=== PATIENT | male | born 1995 | race Caucasian/White ===

== ENCOUNTER 2020-09-27 20:09 | Emergency (ER) | payer OTHER, SELFPAY ==
[2020-09-27 20:10] VITALS: BP 116/83; PULSE 112; RESP 16; TEMP 37.3; O2SAT 98; BMI 34.5
--- NOTE | 2020-09-27 21:34 | EX.ED.DYSGE1 ---
HPI History of Present Illness Chief Complaint: Ear Problem Informant: patient Narrative Narrative: 24-year-old male presenting with left ear pain. He states he started having an earache in his left ear today. He denies fever. He states he had nausea earlier today. He denies vomiting or diarrhea. Denies abdominal pain. He states he had loss of appetite earlier today. He has history of Covid and has since recovered. Denies other complaints. PFSH PFSH Home Medications amoxicillin 500 mg PO TID #21 tab 09/27/20 [Rx Last Taken Unknown] ondansetron 4 mg PO Q8H PRN PRN #10 tab 09/27/20 [Rx Last Taken Unknown] Allergy/AdvReac Type Severity Reaction Status Date / Time No Known Allergies Allergy Verified 07/07/16 06:35 Social History Smoking Status: Current every day smoker ROS ROS ED Constitutional Constitutional ED: Denies fever(s) Eyes Eyes: Denies change in vision ENT ENT ED: Reports ear pain left; Denies rhinorrhea or sore throat Cardiovascular Cardiovascular: Denies chest pain or palpitations Respiratory/Chest Respiratory/Chest: Denies cough or dyspnea Gastrointestinal Gastrointestinal: Reports nausea; Denies abdominal pain, diarrhea or vomiting Genitourinary Genitourinary ED: Denies dysuria Musculoskeletal Musculoskeletal: Denies myalgias Integumentary Denies rash Neurologic Neurologic: Denies headache(s) Psychiatric Psychiatric: Denies suicidal thoughts EXAM Physical Exam Const Vital Signs: 09/27/20 20:10 09/27/20 21:40 Temperature 99.2 F H 98.0 F Temperature Source Oral Pulse Rate 112 H 88 Respiratory Rate 16 16 Blood Pressure 116/83 H 141/90 H Blood Pressure Mean 94 Pulse Ox 98 98 Oxygen Delivery Method Room Air Positive well nourished and well developed General Appearance ED: well developed HEENT Reports normocephalic and head/scalp atraumatic HEENT Narrative: left TM erythema and bulging Eyes PERRL and EOMs intact bilaterally Neck supple General: Negative for tenderness Chest Wall inspection of chest normal Resp normal respiratory effort and clear to auscultation bilaterally Cardio regular rate and regular rhythm GI non-tender and non-distended Palpation: soft; Negative for guarding or rebound tenderness present no CVA tenderness Extremity normal to inspection Neuro oriented x3 Sensorium / Orientation: alert Psych mental status grossly normal Skin no rashes or lesions noted MDM MDM MDM Narrative Medical decision making narrative: Patient declined nausea medication. He was given Amoxicillin. Advised to follow-up with Dr. Yanes mobile web application developer for no doctor. Advised return to the ED for worsening complaints. Discharge Plan Triage Chief Complaint: Ear Problem ED Provider: Judy South Dx/Rx/DC Orders Clinical Impression: Acute left otitis media Instructions: ED Otitis Media Antibiotic ... Prescriptions: New amoxicillin 500 MG tablet 500 mg PO TID Qty: 21 RF: 0 ondansetron [ondansetron] 4 MG tablet 4 mg PO Q8H PRN PRN (Reason: Nausea) Qty: 10 RF: 0 Primary Care Provider: Care Physician,No Primary Referrals: Kaiden Yanes MD [STAFF PHYSICIAN] - Care Physician,No Primary [Primary Care Provider] - Disposition Disposition: Home, self care
[2020-09-27] MEDS: AMOXICILLIN 500 MG CAPSULE PO (21:39)
[2020-09-27 21:40] VITALS: BP 141/90; PULSE 88; RESP 16; TEMP 36.7; O2SAT 98
== END 2020-09-27 21:57 | disposition home or self-care (01) ==
PROVIDERS: Emergency Provider Emergency Medicine
DX: H66.92 Otitis media, unspecified, left ear (principal); F17.200 Nicotine dependence, unspecified, uncomplicated; Z86.16 Personal history of COVID-19
CPT/HCPCS: 90471; 99284

== ENCOUNTER 2021-05-07 19:26 | Emergency (ER) | payer OTHER, SELFPAY ==
[2021-05-07 19:27] VITALS: BP 146/91; PULSE 115; RESP 16; TEMP 36.8; O2SAT 98; BMI 34.2
--- NOTE | 2021-05-07 19:50 | ED.VIS.DENTA ---
HPI History of Present Illness Chief Complaint: Dental Informant: patient Onset/Context/Timing Onset: Yesterday Context: Gradual Onset Timing: Continuous Quality: Aching throbbing Location: Right mandibular bicuspid Current Severity: Moderate Maximum Severity: Severe Worsened by: Eating, palpation Relieved by: NSAIDs (And Vicodin) Narrative Narrative: Dental pain in a tooth that has bothered him in the past, he states his dentist wants to pull it, he was apprehensive in the past. It is the weekend, it started really bothering him and he is concerned that he needs an antibiotic, I tried to call his dentist but they are not in and he plans on following up with them. He denies any systemic symptoms. He denies any focal swelling anywhere. PFSH PFSH Medical History no medical history no medical history Home Medications amoxicillin 500 mg PO TID #21 tab 09/27/20 [Rx Last Taken Unknown] ondansetron 4 mg PO Q8H PRN PRN #10 tab 09/27/20 [Rx Last Taken Unknown] amoxicillin 500 mg PO TID #30 tab 05/07/21 [Rx Last Taken Unknown] Allergy/AdvReac Type Severity Reaction Status Date / Time No Known Allergies Allergy Verified 05/07/21 19:26 Social History Smoking Status: Current every day smoker tobacco type: cigarettes ROS ROS ED Constitutional Constitutional ED: Denies chills or fever(s) Eyes Eyes: Denies change in vision or double vision ENT ENT ED: Reports dental pain; Denies sinus pain or throat swelling Cardiovascular Cardiovascular: Denies chest pain or palpitations Respiratory/Chest Respiratory/Chest: Denies cough or dyspnea Integumentary Denies abscess or rash Neurologic Neurologic: Denies headache(s), paresthesias or weakness EXAM Physical Exam Const Vital Signs: 05/07/21 19:27 Temperature 98.2 F Temperature Source Temporal Pulse Rate 115 H Respiratory Rate 16 Blood Pressure 146/91 H Blood Pressure Mean 109 Pulse Ox 98 Oxygen Delivery Method Room Air Positive well nourished and well developed General Appearance ED: well developed and NAD HEENT HEENT Narrative: Tooth #29 is partially decayed down to the gumline, associated with gingival hyperemia without bleeding. It is tender. No other tender dentition. No dental abscess. No trismus. Face and Sinus: sinuses nontender Throat: posterior oropharynx normal Eyes PERRL and EOMs intact bilaterally Neck no lymphadenopathy and supple Resp normal respiratory effort Neuro oriented x3 and CN's II-XII intact bilaterally Sensorium / Orientation: alert Gait (Neuro): normal gait Psych mental status grossly normal and thought process normal Skin no rashes or lesions noted and no wounds MDM MDM MDM Narrative Medical decision making narrative: Patient not requiring analgesics he states he feels better now after taking someone else's Vicodin at home. He was started on amoxicillin here, given a prescription and advised to follow-up with his dentist he is comfortable with that plan we discussed reasons to return. Discharge Plan Triage Chief Complaint: Dental ED Provider: Logan Liriano Dx/Rx/DC Orders Clinical Impression: Dental decay, Dental infection Instructions: Understanding Tooth Decay Prescriptions: New amoxicillin 500 MG tablet 500 mg PO TID Qty: 30 RF: 0 No Action amoxicillin 500 MG tablet 500 mg PO TID Qty: 21 RF: 0 ondansetron [ondansetron] 4 MG tablet 4 mg PO Q8H PRN PRN (Reason: Nausea) Qty: 10 RF: 0 Primary Care Provider: Twin Gallegos Referrals: Twin Gallegos MD [Primary Care Provider] - Dentist,Your [STAFF PHYSICIAN] - As soon as possible Disposition Disposition: Home, Self Care
[2021-05-07] MEDS: AMOXICILLIN 500 MG CAPSULE PO (19:59)
[2021-05-07] MEDS: Amoxicillin 250 MG Capsule PO (19:59)
[2021-05-07 20:01] VITALS: RESP 16
== END 2021-05-07 20:02 | disposition home or self-care (01) ==
PROVIDERS: Emergency Provider Emergency Medicine; PCP Family Medicine
DX: K02.9 Dental caries, unspecified (principal); K04.7 Periapical abscess without sinus; F17.210 Nicotine dependence, cigarettes, uncomplicated
CPT/HCPCS: 99282